=== PATIENT | female | born 1955 | race Caucasian/White ===

== ENCOUNTER 2018-01-13 10:05 | Outpatient (CLI) | payer OTHER ==
--- NOTE | 2018-01-13 15:03 | MRI ---
MRI LEFT KNEE PERFORMED WITHOUT CONTRAST ENHANCEMENT: HISTORY: Chronic knee pain. FINDINGS: The anterior as well as posterior cruciate ligaments are intact. Medial and lateral menisci have a fairly normal shape and appearance. The medial as well as lateral collateral ligaments and iliotibial band regions are unremarkable. The patellar articular cartilage shows some articular cartilage loss and fibrillation of the surface of the cartilage. The medial and lateral patellar retinaculum and quadriceps and patellar tendons ap pear unremarkable. There is evidence of some edema changes within the quadriceps or anterior suprapa tellar fat pad. There is no associated joint effusion or quadriceps tendon abnormality. IMPRESSION: 1. No evidence of cruciate ligament or meniscal injury. 2. Edema changes associated with the quadriceps fat pad. This could indicate a quadriceps fat pad i mpingement syndrome. Clinical correlation recommended. POS: Ghulam
== END 2018-01-13 10:06 | disposition home or self-care (01) ==
LOC: SCSMRI 10:05
PROVIDERS: ATTEND Orthopaedic Surgery
DX: M25.562 Pain in left knee (principal); E65 Localized adiposity

== ENCOUNTER 2022-09-23 09:25 | Outpatient (CLI) | payer MEDICARE | END 2022-09-23 09:26 | disposition home or self-care (01) | LOC: ULT 09:25 | PROVIDERS: ATTEND Ophthalmology | DX: I08.3 Combined rheumatic disorders of mitral, aortic and tricuspid valves (principal) | CPT/HCPCS: 93306; 93880 ==

== ENCOUNTER 2022-09-24 09:26 | Outpatient (CLI) | payer MEDICARE | END 2022-09-24 09:27 | disposition home or self-care (01) | LOC: SCSMRI 09:26 | PROVIDERS: ATTEND Ophthalmology | DX: H46.9 Unspecified optic neuritis (principal); G93.6 Cerebral edema; R22.0 Localized swelling, mass and lump, head | CPT/HCPCS: 70543; 70553; 82565 ==

== ENCOUNTER 2022-09-24 11:25 | Inpatient (IN) | payer MEDICARE ==
[~2022-09-24 11:25] MED LIST: Iopamidol-370 76% 500 ML MDV (1 ML CHARGE) ONE
[2022-09-24 13:02] LABS: Hemoglobin 14.4 g/dL (12.0-16.0); Mean Corpuscular HGB CONC 36.6 g/dL (32.0-36.0); Mean Corpuscular Hemoglobin 31.7 pg (27.0-31.0); Mean Corpuscular Volume 86.7 fl (78.0-98.0); Mean Platelet Volume 8.6 fL (7.4-10.4); Platelet Count 164 10x3/uL (130-400); RBC Distribution Width 12.6 % (11.5-14.5); Red Blood Cell (RBC) Count 4.56 mill/uL (4.20-5.40); White Blood Cell (WBC) Count 7.1 10x3/uL (4.8-10.8)
[2022-09-24 13:11] LABS: Prothrombin Time 13.1 sec (12.0-14.7)
[2022-09-24 13:13] LABS: PTT 21.8 sec (22.9-36.1)
[2022-09-24] MEDS ORDERED: Dexamethasone 10 MG/ML VIAL ONE (13:13)
[2022-09-24 13:25] LABS: Band 2 % (5-11); Eosinophils 1 % (0-10); Lymphocytes 35 % (21-51); MDiff Complete? YES; Monocytes 9 % (0-10); Neutrophil 52 % (42-75); Platelet Morphology Comment Appears Adequate; RBC Morphology Normal
[2022-09-24] MEDS ORDERED: levETIRAcetam 500 MG/5 ML VIAL ONE (13:27)
[2022-09-24 13:32] LABS: ALT (SGPT) 14 U/L (8-55); AST (SGOT) 16 U/L (5-34); Albumin 4.1 g/dL (3.4-4.8); Alkaline Phosphatase 69 U/L (40-110); Anion Gap 16 mmol/L (10-20); BUN (Urea Nitrogen) 13 mg/dL (9.8-20.1); Bilirubin, Total 0.7 mg/dL (0.2-1.2); Calc. Creatinine Clearance 0 mL/min (70-130); Calcium 9.3 mg/dL (7.8-10.44); Carbon Dioxide 20 mmol/L (23-31); Chloride 107 mmol/L (98-107); Estimated GFR 68; Glucose 95 mg/dL (80-115); Potassium 3.5 mmol/L (3.5-5.1); Protein, Total 7.1 g/dL (5.8-8.1); Sodium 139 mmol/L (136-145)
[2022-09-24] MEDS ORDERED: Ondansetron PF 4 MG/2 ML Vial IVP PRN (13:45)
[2022-09-24] MEDS ORDERED: hydrALAZINE 20 MG/ML VIAL SLOW IVP PRN (13:45)
[2022-09-24] MEDS ORDERED: Acetaminophen 325 MG TAB PO PRN (13:45)
[2022-09-24] MEDS ORDERED: Promethazine HCl 12.5 MG in Sodium Chloride 0.9% 50 ML IVPB PRN (13:57)
[2022-09-24] MEDS ORDERED: HYDROcodone/Acetaminophen 5/325 mg Tablet PO PRN (13:57)
[2022-09-24] MEDS ORDERED: Morphine 2 MG/ML VIAL SLOW IVP PRN (13:57)
[2022-09-24] MEDS ORDERED: Acetaminophen/Codeine 30-300mg Tablet PO PRN (13:57)
[2022-09-24] MEDS ORDERED: levETIRAcetam 500 MG/5 ML VIAL SLOW IVP SCH (14:00)
[2022-09-24 16:35] VITALS: BMI 35.5
[2022-09-24] MEDS: Dexamethasone 4 MG TAB PO SCH (21:16)
[2022-09-24] MEDS: levETIRAcetam 500 MG TAB PO SCH (21:16)
[2022-09-25] MEDS: Dexamethasone 4 MG TAB PO SCH ×4 (01:13→20:48)
[2022-09-25] MEDS ORDERED: HYDROmorphone 2 MG/ML VIAL ONE (06:42)
[2022-09-25] MEDS ORDERED: Fentanyl 250 MCG/5 ML VIAL ONE (06:42)
[2022-09-25] MEDS ORDERED: Dexmedetomidine 200 MCG/2 ML VIAL ONE ×2 (06:43→08:11)
[2022-09-25] MEDS ORDERED: PHENYLEPHRINE-NS 100 MCG/ML 10 ML SYRINGE ONE (06:43)
[2022-09-25] MEDS ORDERED: Thrombin 5000 UNITS/5 ML VIAL ONE (07:02)
[2022-09-25] MEDS ORDERED: EPINEPHrine 1 MG/ML AMP ONE (07:02)
[2022-09-25] MEDS ORDERED: Lidocaine 1% (PF) 30 ML VIAL ONE (07:02)
[2022-09-25] MEDS ORDERED: Bacitracin Zinc Ointment 30 gm TUBE ONE (07:02)
[2022-09-25] MEDS ORDERED: Sodium Chloride 0.9% 100 ML ONE (07:53)
[2022-09-25] MEDS ORDERED: CEFAZOLIN 2 GM VIAL ONE (07:53)
[2022-09-25] MEDS ORDERED: Albumin 25% 100 ML ONE (07:56)
[2022-09-25] MEDS ORDERED: Propofol 1,000 MG/100 ML VIAL IV ONE (07:56)
[2022-09-25] MEDS ORDERED: Vecuronium 10 MG VIAL ONE ×2 (07:56→08:19)
[2022-09-25] MEDS ORDERED: Dexamethasone 20 MG/5 ML VIAL ONE (08:19)
[2022-09-25] MEDS ORDERED: Lidocaine 1% PF 5 ML VIAL ONE (08:19)
[2022-09-25] MEDS ORDERED: PROPOFOL 200 MG/20 ML VIAL ONE (08:19)
[2022-09-25] MEDS ORDERED: Ondansetron PF 4 MG/2 ML Vial ONE (08:19)
[2022-09-25] MEDS ORDERED: Rocuronium Bromide 10 MG/ML (10ML VIAL) ONE (08:19)
[2022-09-25] MEDS ORDERED: Phenylephrine 10 MG/ML VIAL ONE (08:19)
[2022-09-25] MEDS: levETIRAcetam 500 MG TAB PO SCH (08:49)
[2022-09-25] MEDS ORDERED: SUGAMMADEX SODIUM 200 MG/2 ML VIAL ONE (11:55)
[2022-09-25] MEDS ORDERED: CEFAZOLIN 2 GM in Sodium Chloride 0.9% 100 ML IVPB SCH (16:00)
[2022-09-25] MEDS: Sodium Chloride 0.9% 1,000 ML IV SCH (16:40)
[2022-09-25] MEDS: levETIRAcetam 500 MG/5 ML VIAL SLOW IVP SCH (21:50)
[2022-09-25] MEDS: Atorvastatin Calcium 20 MG TAB PO SCH (21:50)
[2022-09-25] MEDS: Clindamycin/D5W 900 MG in Premix Bag 1 BAG IVPB SCH (21:51)
[2022-09-26] MEDS: Dexamethasone 4 mg/ml Vial SLOW IVP SCH ×4 (02:45→18:10)
[2022-09-26] MEDS: Clindamycin/D5W 900 MG in Premix Bag 1 BAG IVPB SCH ×3 (06:14→21:51)
[2022-09-26 07:01] LABS: Band 3 % (5-11); Hemoglobin 11.6 g/dL (12.0-16.0); Lymphocytes 10 % (21-51); MDiff Complete? YES; Mean Corpuscular HGB CONC 34.6 g/dL (32.0-36.0); Mean Corpuscular Hemoglobin 30.1 pg (27.0-31.0); Mean Platelet Volume 8.5 fL (7.4-10.4); Neutrophil 87 % (42-75); Platelet Count 207 10x3/uL (130-400); Platelet Morphology Comment Appears Adequate; RBC Distribution Width 12.9 % (11.5-14.5); RBC Morphology Normal; Red Blood Cell (RBC) Count 3.87 mill/uL (4.20-5.40); White Blood Cell (WBC) Count 20.3 10x3/uL (4.8-10.8)
[2022-09-26 07:03] LABS: Anion Gap 15 mmol/L (10-20); BUN (Urea Nitrogen) 16 mg/dL (9.8-20.1); Calc. Creatinine Clearance 101 mL/min (70-130); Calcium 8.7 mg/dL (7.8-10.44); Carbon Dioxide 19 mmol/L (23-31); Chloride 112 mmol/L (98-107); Estimated GFR 75; Glucose 150 mg/dL (80-115); Potassium 3.5 mmol/L (3.5-5.1); Sodium 142 mmol/L (136-145)
[2022-09-26] MEDS ORDERED: Non-Formulary Item 1 EACH (Omeprazole [Omeprazole] 40 MG Capsule.Dr) PO SCH (09:00)
[2022-09-26] MEDS: Loratadine 10 MG TAB PO SCH (09:20)
[2022-09-26] MEDS: Pantoprazole 40 MG VIAL IVP SCH (09:20)
[2022-09-26] MEDS: levETIRAcetam 500 MG/5 ML VIAL SLOW IVP SCH ×2 (09:20→20:39)
[2022-09-26] MEDS: Sodium Chloride 0.9% 1,000 ML IV SCH (12:08)
[2022-09-26] MEDS: Atorvastatin Calcium 20 MG TAB PO SCH (20:39)
[2022-09-27] MEDS: Dexamethasone 4 mg/ml Vial SLOW IVP SCH ×3 (00:05→11:36)
[2022-09-27] MEDS: Clindamycin/D5W 900 MG in Premix Bag 1 BAG IVPB SCH ×3 (06:11→20:58)
[2022-09-27] MEDS ORDERED: diphenhydrAMINE 25 MG CAP PO PRN (08:33)
[2022-09-27] MEDS ORDERED: diphenhydrAMINE 25 MG CAP PO SCH (08:33)
[2022-09-27] MEDS: Sodium Chloride 0.9% 1,000 ML IV SCH (09:19)
[2022-09-27] MEDS: Loratadine 10 MG TAB PO SCH (09:23)
[2022-09-27] MEDS: levETIRAcetam 500 MG/5 ML VIAL SLOW IVP SCH (09:23)
[2022-09-27] MEDS: Pantoprazole 40 MG VIAL IVP SCH (09:23)
[2022-09-27] MEDS: Dexamethasone 4 MG TAB PO SCH (18:01)
[2022-09-27] MEDS: Atorvastatin Calcium 20 MG TAB PO SCH (20:58)
[2022-09-28] MEDS: Dexamethasone 4 MG TAB PO SCH ×3 (00:14→12:43)
[2022-09-28] MEDS: Clindamycin/D5W 900 MG in Premix Bag 1 BAG IVPB SCH (05:29)
[2022-09-28] MEDS: Sodium Chloride 0.9% 1,000 ML IV SCH (06:35)
[2022-09-28 09:38] VITALS: TEMP 97.9
[2022-09-28] MEDS: Loratadine 10 MG TAB PO SCH (10:11)
[2022-09-28 12:52] VITALS: BP 145/89
== END 2022-09-28 15:24 | disposition home or self-care (01) | DRG 25 ==
LOC: ERS 11:25 → SURG A 15:12 → CCU 09-25 08:52 → SURG A 09-26 16:09
PROVIDERS: ADMIT Surgery; ATTEND Surgery
PROC: 00B10ZZ Excision of Cerebral Meninges, Open Approach (ICD-10-PCS; principal; 2022-09-25)
DX: D32.0 Benign neoplasm of cerebral meninges (principal); G93.41 Metabolic encephalopathy; G93.6 Cerebral edema; H46.9 Unspecified optic neuritis; I10 Essential (primary) hypertension; E78.5 Hyperlipidemia, unspecified; M19.90 Unspecified osteoarthritis, unspecified site; H47 Other disorders of optic [2nd] nerve and visual pathways; Z90.49 Acquired absence of other specified parts of digestive tract; Z79.899 Other long term (current) drug therapy; Z88.1 Allergy status to other antibiotic agents; I08.3 Combined rheumatic disorders of mitral, aortic and tricuspid valves; R22.0 Localized swelling, mass and lump, head
CPT/HCPCS: 36415; 70450; 70496; 70543; 70553; 80048; 80053; 82565; 85025; 85610; 85730; 88307; 88341; 88342; 93306; 93880; 93970; 96374; 96375; C1713; C9113; J0171; J1100; J1170; J1953; J2001; J2370; J2405; J2704; J3010; J3490; J7050; J8540; P9047; Q9967

== ENCOUNTER 2023-01-28 09:02 | Outpatient (CLI) | payer MEDICARE | END 2023-01-28 09:03 | disposition home or self-care (01) | LOC: SCSMRI 09:02 | PROVIDERS: ATTEND Surgery | DX: D32.9 Benign neoplasm of meninges, unspecified (principal); Z98.890 Other specified postprocedural states | CPT/HCPCS: 70553 ==

== ENCOUNTER 2023-09-06 08:05 | Outpatient (CLI) | payer MEDICARE | END 2023-09-06 08:06 | disposition home or self-care (01) | LOC: SCSMRI 08:05 | PROVIDERS: ATTEND Surgery | DX: D32.9 Benign neoplasm of meninges, unspecified (principal); Z98.890 Other specified postprocedural states | CPT/HCPCS: 70553; 82565 ==